=== PATIENT | female | born 1970 | race African-American/Black ===

== ENCOUNTER 2017-03-21 14:16 | Emergency (ER) | payer OTHER ==
[2017-03-21 14:26] VITALS: BP 140/86; PULSE 97; TEMP 98.5; BMI 58.7
--- NOTE | 2017-03-21 15:38 | PDOC ---
History of Present Illness - General Chief Complaint: Ear Problem Stated Complaint: EAR PAIN Time Seen by Provider: 03/21/17 15:04 History Source: Patient Exam Limitations: No Limitations - History of Present Illness Initial Comments: 03/21/17 15:31 47 yr female with pain to left ear for 4 days with drainage noted today. pt has no fever no chills. Past History - Past Medical History Allergies/Adverse Reactions: Allergies Allergy/AdvReac Type Severity Reaction Status Date / Time No Known Allergies Allergy Verified 03/21/17 14:25 Home Medications: Ambulatory Orders Metformin HCl [Glucophage] 1,000 mg PO BID 09/27/15 Neomycin/Polymyxin B Sulf/Hc [Kpyyfmxb-Txqzesowr-Ko Ear Soln] 5 drop QID #2 bottle 03/21/17 Diabetes: Yes (Borderline) - Suicide/Smoking/Psychosocial Hx Smoking History: Never smoked Information on smoking cessation initiated: No Hx Alcohol Use: No Drug/Substance Use Hx: No Substance Use Type: None Review of Systems - Review of Systems Able to Perform ROS?: Yes Is the patient limited [place] proficient: No Constitutional: No: Symptoms Reported HEENTM: Yes: Symptoms Reported, See HPI Respiratory: No: Symptoms reported Cardiac (ROS): No: Symptoms Reported ABD/GI: No: Symptoms Reported : No: Symptoms Reported Musculoskeletal: No: Symptoms Reported Integumentary: No: Symptoms Reported *Physical Exam - Vital Signs Last Vital Signs Temp Pulse Resp BP Pulse Ox 98.5 F 97 H 18 140/86 100 03/21/17 14:23 03/21/17 14:23 03/21/17 14:23 03/21/17 14:23 03/21/17 14:23 - Physical Exam General Appearance: Yes: Nourished, Appropriately Dressed, Obese HEENT: positive: EOMI, ELAYNE, TMs Normal, Pharynx Normal, TM Erythema (drainage left ear narrowing of canal) Neck: positive: Supple Respiratory/Chest: positive: Lungs Clear, Normal Breath Sounds Cardiovascular: positive: Regular Rhythm, Regular Rate Medical Decision Making - Medical Decision Making 03/21/17 15:33 cc: pain left ear with drainage for 4 days no fever no chills no swimming no air plain travel will treat for AOE *DC/Admit/Observation/Transfer Diagnosis at time of Disposition: Otitis externa of left ear Qualifiers: Otitis externa type: unspecified type Chronicity: acute Qualified Code(s): H60.502 - Unspecified acute noninfective otitis externa, left ear; H60.502 - Unspecified acute noninfective otitis externa, left ear - Discharge Dispostion Disposition: HOME Condition at time of disposition: Good - Prescriptions Prescriptions: Neomycin/Polymyxin B Sulf/Hc [Naougfcp-Bqrrwqhos-Nn Ear Soln] 5 drop QID #2 bottle - Referrals Referrals: Ambrosio Zaidi MD [Staff Physician] - - Patient Instructions Additional Instructions: use the ear drops as directed take motrin for pain as needed follow with the ear doctor next week if symptoms worsen or persist
== END 2017-03-21 15:44 | disposition home or self-care (01) ==
LOC: JERFT 14:16
DX: H60.502 Unspecified acute noninfective otitis externa, left ear (principal); R73.03 Prediabetes
CPT/HCPCS: 99281-25

== ENCOUNTER 2017-09-20 11:09 | Emergency (ER) | payer OTHER ==
[2017-09-20 12:06] VITALS: BP 117/68; PULSE 73; TEMP 98.1; BMI 43.8
--- NOTE | 2017-09-20 14:24 | PDOC ---
History of Present Illness - General Chief Complaint: Injury Stated Complaint: PAIN/ LT KNEE, RT WRIST Time Seen by Provider: 09/20/17 12:58 History Source: Patient Exam Limitations: No Limitations - History of Present Illness Initial Comments: 09/20/17 14:18 CHIEF COMPLAINT: Right wrist, thumb pain and left knee pain HISTORY OF PRESENT ILLNESS: Patient is a 47-year-old morbidly obese female reports 2 days ago twisted left knee still with residual pain lasts reports hitting the right hand against a wall. It shooting pain from base of right thumb upper arm, still with residual pain reproducible with movement. Pain is 10 out of 10 described as stiffening, sharp pain with movement. PMH: Denies, borderline diabetic and is taking metformin ALLERGIES: None REVIEW OF SYSTEMS: GENERAL/CONSTITUTIONAL: Awake alert and oriented HEAD, EYES, EARS, NOSE AND THROAT: No change in vision. No facial edema, no bruising. NO active bleeding. Nares intact. RESPIRATORY: No cough, wheezing, or hemoptysis. CARDIAC: Denies chest pain, no shortness of breathe. MUSCULOSKELETAL: No spinal point tenderness, Good ROM to all four extremities. Pain with range of motion to thumb and thenar. NO CVA tenderness. lateral neck pain. GI/: Denies abdominal pain, no nausea or vomiting, no bloody stool, no Hematuria. SKIN : No erythema or bruising noted. No abrasion or lacerations. NEUROLOGIC: No loss of consciousness, no numbness or tingling. PHYSICAL EXAM: GENERAL: Awake and alert and oriented x3. EYES: The pupils are equal, round, and reactive to light, with clear, conjunctiva. Good extraocular movement. No nystagmus NOSE: No nasal trauma . Midface stable MOUTH: Teeth intact. EARS: The ear canals and tympanic membranes are normal without trauma. No drainage. NECK: No Lower cervical C-spine tenderness, no pain with chin to chest. CHEST: The lungs are clear without crackles, or wheezes. No subcutaneous emphysema. No crepitus. HEART: Heart is regular rhythm, with normal S1 and S2, no murmurs. ABDOMEN: The abdomen is soft and nontender with normal bowel sounds. There is no guarding or rebound. MUSCULOSKELETAL: No spinal point tenderness. No bruising or erythema. Pelvis stable. Left knee with pain but good range of motion, no fluid appreciated, no bulge sign. No pain to superior or inferior patella. Negative drop test. Negative posterior leg test. No joint laxity noted, no ecchymosis, no deformity , no abrasions ,no edema. +3 popliteal pulse. Negative Homans sign. No calf pain or tenderness, no erythema or edema. No pain to snuffbox or thenar surface on palpation, only with range of motion to right hand. EXTREMITIES: Extremities are normal. No visible traumatic injury. NEUROLOGICAL:Mental status: The patient is oriented x3. No Generalized headache , Romberg - SKIN: Without edema, erythema or bruising. No abrasions or lacerations. Past History - Past Medical History Allergies/Adverse Reactions: Allergies Allergy/AdvReac Type Severity Reaction Status Date / Time No Known Allergies Allergy Verified 09/20/17 12:00 Home Medications: Ambulatory Orders Metformin HCl [Glucophage] 1,000 mg PO BID 09/27/15 Naproxen [Naprosyn -] 500 mg PO BID #20 tablet 09/20/17 Anemia: Yes COPD: No DVT: No Diabetes: Yes (Borderline) - Immunization History Immunization Up to Date: Yes - Suicide/Smoking/Psychosocial Hx Smoking History: Never smoked Have you smoked in the past 12 months: No Information on smoking cessation initiated: No Hx Alcohol Use: No Drug/Substance Use Hx: No Substance Use Type: None *Physical Exam - Vital Signs Last Vital Signs Temp Pulse Resp BP Pulse Ox 98.1 F 73 17 117/68 97 09/20/17 12:02 09/20/17 12:02 09/20/17 12:02 09/20/17 12:02 09/20/17 12:02 ED Treatment Course - RADIOLOGY Radiology Studies Ordered: Category Date Time Status KNEE 3 POS-LEFT [RAD] Stat Radiology 09/20/17 13:45 Taken WRIST W/HAND-RIGHT* [RAD] Stat Radiology 09/20/17 13:29 Taken Medical Decision Making - Medical Decision Making 09/20/17 14:24 A/P: She is a 47-year-old female, presents with right hand and left knee pain reports twisting her knee patient is morbidly obese. Have sent patient to x- ray of right hand and left knee, both negative for acute fracture dislocation or effusion. I have given patient Naprosyn while in emergency department I have explained to patient that weight a player rolling chronic knee pain and needs to follow-up with an orthopedist, hyperextension injury to right thumb may decrease with anti-inflammatories if pain persists in 1 week follow-up with ortho *DC/Admit/Observation/Transfer Diagnosis at time of Disposition: Hand pain, right Knee pain Qualifiers: Chronicity: acute Laterality: right Qualified Code(s): M25.561 - Pain in right knee - Discharge Dispostion Disposition: HOME Condition at time of disposition: Stable Admit: No - Prescriptions Prescriptions: Naproxen [Naprosyn -] 500 mg PO BID #20 tablet - Referrals Referrals: Chele Gore MD [Staff Physician] - - Patient Instructions Additional Instructions: Recommend follow-up with orthopedics as soon as possible . - Post Discharge Activity Forms/Work/School Notes: Back to Work
[2017-09-20] MEDS ORDERED: NAPROXEN 500 MG TABLET (FP) ONE (15:05)
[2017-09-20] MEDS ORDERED: NAPROXEN 500 MG TABLET (FP) PO ONE (15:06)
== END 2017-09-20 15:19 | disposition home or self-care (01) ==
LOC: JERFT 11:09
DX: M79.641 Pain in right hand (principal); M25.562 Pain in left knee; W22.8XXA Striking against or struck by other objects, initial encounter; Y93.89 Activity, other specified; Y92.89 Other specified places as the place of occurrence of the external cause; Y99.8 Other external cause status; E66.01 Morbid (severe) obesity due to excess calories; Z68.41 Body mass index [BMI] 40.0-44.9, adult
CPT/HCPCS: 73110-TC-RT-FY; 73130-TC-RT-FY; 73562-TC-LT-FY; 99281-25

== ENCOUNTER 2018-11-11 05:32 | Emergency (ER) | payer OTHER ==
[2018-11-11 06:22] VITALS: TEMP 98.2; BMI 101.7
--- NOTE | 2018-11-11 06:54 | PDOC ---
History of Present Illness - General Chief Complaint: Rash Stated Complaint: R FOOT RASH History Source: Patient Exam Limitations: No Limitations - History of Present Illness Initial Comments: 11/11/18 06:47 Patient is a 48-year-old female prediabetic, morbidly obese, complaining of right leg swelling, pain and a rash 1.5 weeks. Patient states that she had itching to the right lower leg and scratched an area over the sanon about a week and a half ago. States she noticed a rash, which swelling which has progressively worsened. Now she has a throbbing pain to her lower extremity is 7 /10. She denies fever, chills. No recent travel, family history negative for PE /DVT PMD: Dr. Hector Mcdonnell PMHX: as above PSOCHX: neg etoh, drug, cig ALL: NKDA GENERAL/CONSTITUTIONAL: No fever or chills. No weakness. No weight change. HEAD, EYES, EARS, NOSE AND THROAT: No change in vision. No ear pain or discharge. No sore throat. CARDIOVASCULAR: No chest pain or shortness of breath. RESPIRATORY: No cough, wheezing, or hemoptysis. GASTROINTESTINAL: No nausea, vomiting, diarrhea or constipation. No rectal bleeding. GENITOURINARY: No dysuria, frequency, or change in urination. MUSCULOSKELETAL: No joint or muscle swelling or pain. No neck or back pain. SKIN AND BREASTS: (+) rash (-) easy bruising. NEUROLOGIC: No headache, vertigo, loss of consciousness, or loss of sensation. PSYCHIATRIC: No depression or anxiety. ENDOCRINE: No increased thirst. No abnormal weight change. HEMATOLOGIC/LYMPHATIC: No anemia, easy bleeding, or history of blood clots. ALLERGIC/IMMUNOLOGIC: No hives or skin allergy. No latex allergy. GENERAL: The patient is awake, alert, and fully oriented, in mild distress. HEAD: Normal with no signs of trauma. EYES: Pupils equal, round and reactive to light, extraocular movements intact, sclera anicteric, conjunctiva clear. ENT: Ears normal, nares patent, oropharynx clear without exudates. Moist mucous membranes. NECK: Normal range of motion, supple without lymphadenopathy, JVD, or masses. LUNGS: Breath sounds equal, clear to auscultation bilaterally. No wheezes, and no crackles. HEART: Regular rate and rhythm, normal S1 and S2 without murmur, rub. ABDOMEN: Soft, obese, nontender, normoactive bowel sounds. No guarding, no rebound. No masses. EXTREMITIES: Normal range of motion, no edema. No clubbing or cyanosis. No cords, erythema, or tenderness. NEUROLOGICAL: Cranial nerves II through XII grossly intact. Normal speech, normal gait. PSYCH: Normal mood, normal affect. SKIN: Warmth, (+) swelling, tenderness to the right lower ext - sanon, with scabby, dry rash, erythematous, 1+ pitting edema to the foot Past History - Past Medical History Allergies/Adverse Reactions: Allergies Allergy/AdvReac Type Severity Reaction Status Date / Time No Known Allergies Allergy Verified 11/11/18 06:22 Home Medications: Ambulatory Orders Metformin HCl [Glucophage] 1,000 mg PO BID 09/27/15 Naproxen [Naprosyn -] 500 mg PO BID #20 tablet 09/20/17 Anemia: Yes COPD: No DVT: No Diabetes: Yes (Borderline) - Immunization History Immunization Up to Date: Yes - Suicide/Smoking/Psychosocial Hx Smoking History: Never smoked Have you smoked in the past 12 months: No Information on smoking cessation initiated: No Hx Alcohol Use: No Drug/Substance Use Hx: No Substance Use Type: None *Physical Exam - Vital Signs Last Vital Signs Temp Pulse Resp BP Pulse Ox 98.2 F 85 18 126/70 97 11/11/18 05:32 11/11/18 05:32 11/11/18 05:32 11/11/18 05:32 11/11/18 05:32 ED Treatment Course - RADIOLOGY Radiology Studies Ordered: Category Date Time Status DUPLEX VASCUL US-1 LEG [US] Stat Ultrasound 11/11/18 06:46 Ordered Medical Decision Making - Medical Decision Making 11/11/18 06:47 Patient is a 48-year-old female prediabetic, morbidly obese, complaining of right leg swelling, pain and a rash 1.5 weeks. Patient states that she had itching to the right lower leg and scratched an area over the sanon about a week and a half ago. States she noticed a rash, which swelling which has progressively worsened. Now she has a throbbing pain to her lower extremity is 7 /10. She denies fever, chills. No recent travel, family history negative for PE /DVT. Symptoms consistent with cellulitis of the leg labs, incl cult antibx US doppler right lower ext Endorsed to day team pending work up *DC/Admit/Observation/Transfer Diagnosis at time of Disposition: Cellulitis of leg without foot, right - Discharge Dispostion Condition at time of disposition: Fair - Referrals - Patient Instructions - Post Discharge Activity
[2018-11-11 08:12] VITALS: BP 137/74; PULSE 72
--- NOTE | 2018-11-11 08:21 | PDOC ---
*Physical Exam - Vital Signs Last Vital Signs Temp Pulse Resp BP Pulse Ox 98.2 F 72 18 137/74 100 11/11/18 05:32 11/11/18 08:00 11/11/18 08:00 11/11/18 08:00 11/11/18 08:00 - Physical Exam General Appearance: Yes: Appropriately Dressed. No: Apparent Distress HEENT: positive: Normal Voice Neck: positive: Supple Respiratory/Chest: positive: Lungs Clear, Normal Breath Sounds. negative: Respiratory Distress Cardiovascular: positive: Regular Rate, S1, S2 Extremity: positive: Other (diffuse edema of RLE w/ hyperpigmented, moist plaques to R ankle/lower leg circumferentially of unclear etiology, minimal erythema and warmth to site, unable to palpate pulses, LLE uninvolved) Integumentary: positive: Dry, Warm Neurologic: positive: Fully Oriented, Alert, Normal Mood/Affect ED Treatment Course - LABORATORY CBC & Chemistry Diagram: 11/11/18 07:55 11/11/18 07:55 Medical Decision Making - Medical Decision Making 11/11/18 08:19 Pt signed out to me at 7am 48 yo morbidly obesed, NIDDM, here w/ RLE pain/swelling. Patient states one week ago noticed pruritic rash to right leg for the first time and developed pain and swelling to site yesterday. No fever or chills. No history of similar episode. Denies chest pain, shortness of breath or palpitations. No obvious risk factor for DVT, PE. Labs and US pending 11/11/18 08:50 On exam now, pt has diffuse edema to RLE w/ hyperpigmented, moist plaques circumferentially to R ankle/lower leg w/ minimal erythema and warmth, no sig ttp, unable to palpate pulses 2/2 swelling. Labs and US still pending at this time. Will give dose of IV abx and discuss dispo w/ ED attg 11/11/18 09:52 UA neg for DVT. Labs unremarkable. Patient also evaluated by Dr. Ortiz who recommends discharging with antibiotics and have patient return in 2 days for reassessment. Pt also given vascular referral *DC/Admit/Observation/Transfer Diagnosis at time of Disposition: Cellulitis of leg without foot, right - Discharge Dispostion Disposition: HOME Condition at time of disposition: Stable - Prescriptions Prescriptions: Clindamycin [Cleocin -] 300 mg PO Q6HPO #28 capsule Clindamycin [Cleocin -] 300 mg PO Q6HPO #28 capsule - Referrals Referrals: Holden Brock MD [Non Staff, Medical] - - Patient Instructions Printed Discharge Instructions: Cellulitis Additional Instructions: You are being treated for an infection of your right leg. Please take the clindamycin as directed. We want you to return to the ER in 2 days for reassessment. Please return sooner if symptoms worsen as discussed today - Post Discharge Activity
[2018-11-11] MEDS ORDERED: CLINDAMYCIN 600MG PREMIX IVPB 600 MG/50 ML BAG IVPB ONE ×2 (08:22→08:57)
[2018-11-11 08:30] LABS: ALBUMIN 3.3 g/dl (3.4-5.0); BILIRUBIN,TOTAL 0.3 mg/dL (0.2-1); BLOOD UREA NITROGEN 12.2 mg/dL (7-18); CALCIUM 8.9 mg/dL (8.5-10.1); CREATININE 0.6 mg/dL (0.55-1.3); POTASSIUM 4.7 mmol/L (3.5-5.1); TOT PROT 7.1 g/dl (6.4-8.2)
[2018-11-11 09:20] LABS: BASO % 0.6 % (0-2.0); EOS % 3.6 % (0-4.5); HEMATOCRIT 30.9 % (32.4-45.2); HEMOGLOBIN 9.7 GM/dL (10.7-15.3); LYMPH % 37.6 % (8-40); MCH 25.4 pg (25.7-33.7); MCHC 31.4 g/dl (32.0-36.0); MONO % 7.5 % (3.8-10.2); NEUT % 50.7 % (42.8-82.8); RBC 3.82 M/mm3 (3.60-5.2); RDW 23.2 % (11.6-15.6); WHITE BLOOD COUNT 10.1 K/mm3 (4.0-10.0)
[2018-11-11 09:53] LABS: PLATELET COUNT 224 K/MM3 (134-434)
[2018-11-11 11:26] LABS: ANISOCYTOSIS 1+; MACROCYTOSIS 0; PLATELET ESTIMATE NORMAL
== END 2018-11-11 10:05 | disposition home or self-care (01) ==
LOC: JER 05:32
DX: L03.115 Cellulitis of right lower limb (principal); R73.03 Prediabetes; E66.01 Morbid (severe) obesity due to excess calories; Z68.45 Body mass index [BMI] 70 or greater, adult
CPT/HCPCS: 36415; 80053; 85025; 85651; 86140; 87040; 93971-TC; 96365; 99283-25

== ENCOUNTER 2018-11-25 13:48 | Emergency (ER) | payer OTHER ==
[2018-11-25 13:54] VITALS: BP 150/69; PULSE 87; TEMP 97.9; BMI 55.3
[2018-11-25] MEDS ORDERED: DEXAMETHASONE SOD PHOSPHATE 10 MG/1 ML VIAL IM ONE (14:05)
[2018-11-25] MEDS ORDERED: DEXAMETHASONE SOD PHOSPHATE 10 MG/1 ML VIAL ONE (14:08)
--- NOTE | 2018-11-25 14:12 | PDOC ---
History of Present Illness - General Chief Complaint: Rash Stated Complaint: ALLERGY Time Seen by Provider: 11/25/18 13:58 History Source: Patient Exam Limitations: Clinical Condition - History of Present Illness Initial Comments: 11/25/18 14:44 Patient with no significant past medical history present with complaint of diffuse hives after finishing clindamycin antibiotics for right leg cellulitis area and patient was seen a week ago with cellulitis to right lower leg and was treated it clindamycin antibiotics and reports started breaking out with hives after starting antibiotics but has finished antibiotics and rash still persists and has been worsening past 3 days. Denies shortness of breath, tongue swelling , difficulty breathing. Patient was referred to follow up wound care clinic but hasn't followed up yet. Past History - Past Medical History Allergies/Adverse Reactions: Allergies Allergy/AdvReac Type Severity Reaction Status Date / Time clindamycin Allergy Verified 11/25/18 14:33 Home Medications: Ambulatory Orders Metformin HCl [Glucophage] 1,000 mg PO BID 09/27/15 Naproxen [Naprosyn -] 500 mg PO BID #20 tablet 09/20/17 Famotidine [Pepcid] 20 mg PO BID 5 Days #10 tablet 11/25/18 Silver Sulfadiazine 1% Top Cr [Silvadene -] 1 applic TP BID #1 jar 11/25/18 predniSONE [Deltasone -] 20 mg PO DAILY 5 Days #10 tablet 11/25/18 Anemia: Yes COPD: No DVT: No Diabetes: Yes (Borderline) - Immunization History Immunization Up to Date: Yes - Suicide/Smoking/Psychosocial Hx Smoking History: Never smoked Have you smoked in the past 12 months: No Hx Alcohol Use: No Drug/Substance Use Hx: No Substance Use Type: None Review of Systems - Review of Systems Able to Perform ROS?: Yes Is the patient limited [place] proficient: No Constitutional: No: Fever, Malaise HEENTM: No: Symptoms Reported Respiratory: No: Symptoms reported Cardiac (ROS): No: Symptoms Reported ABD/GI: No: Symptoms Reported Musculoskeletal: No: Symptoms Reported Integumentary: Yes: Symptoms Reported, See HPI, Change in Color (right lower leg ), Erythema (right lower leg), Rash (all over) Neurological: No: Numbness, Paresthesia, Tingling All Other Systems: Reviewed and Negative *Physical Exam - Vital Signs Last Vital Signs Temp Pulse Resp BP Pulse Ox 97.9 F 87 18 150/69 99 11/25/18 13:51 11/25/18 13:51 11/25/18 13:51 11/25/18 13:51 11/25/18 13:51 - Physical Exam Comments: 11/25/18 14:48 GENERAL: Well developed, well nourished. Awake and alert. No acute distress. HEENT: Normocephalic, atraumatic. PERRLA, EOMI. No conjunctival pallor. Sclera are non-icteric. Moist mucous membranes. Oropharynx is clear. NECK: Supple. Full ROM. CARDIOVASCULAR: Regular rate and rhythm. No murmurs, rubs, or gallops. Distal pulses are 2+ and symmetric. PULMONARY: No evidence of respiratory distress. MUSCULOSKELETAL Normal range of motion at all joints. EXTREMITIES: moderate edema to right lower leg and foot. No calf tenderness. SKIN: Warm and dry. Normal capillary refill. mild diffused erythema of right lower leg above right ankle with aschcar to skin and small area of blisters to cellulitis of lateral aspect of right leg above right ankle NEUROLOGICAL: Alert, awake, appropriate. Gait is normal without ataxia. PSYCHIATRIC: Cooperative. Good eye contact. Appropriate mood General Appearance: Yes: Nourished, Appropriately Dressed. No: Apparent Distress Medical Decision Making - Medical Decision Making 11/25/18 14:46 Patient with no significant past medical history present with complaint of diffuse hives after finishing clindamycin antibiotics for right leg cellulitis area and patient was seen a week ago with cellulitis to right lower leg and was treated it clindamycin antibiotics and reports started breaking out with hives after starting antibiotics but has finished antibiotics and rash still persists and has been worsening past 3 days. Denies shortness of breath, tongue swelling , difficulty breathing. Patient was referred to follow up wound care clinic but hasn't followed up yet. Exam significant for diffuse urticarial rash globally with right lower distal leg skin erythema with Ashcar. Oropharynx patent. Decadron 10 mg IM given for ALLERGIC reaction. Patient be discharged home on by mouth Pepcid and prednisone for ALLERGIC dermatitis. Patient also prescribed Silvadene cream to help with blisters to right lower leg from cellulitis with wound follow-up. Patient advised to call wound care tomorrow for follow-up and stressed importance of wound care follow-up. Patient stable for discharge *DC/Admit/Observation/Transfer Diagnosis at time of Disposition: Cellulitis of leg without foot, right, Allergic dermatitis - Discharge Dispostion Disposition: HOME Condition at time of disposition: Stable Decision to Admit order: No - Prescriptions Prescriptions: Famotidine [Pepcid] 20 mg PO BID 5 Days #10 tablet predniSONE [Deltasone -] 20 mg PO DAILY 5 Days #10 tablet Silver Sulfadiazine 1% Top Cr [Silvadene -] 1 applic TP BID #1 jar - Referrals Referrals: Holden Brock DO [Staff Physician] - Call tomorrow - Patient Instructions Printed Discharge Instructions: DI for Cellulitis -- Adult Additional Instructions: Take medications as prescribed. Follow-up with wound care as discussed. Call tomorrow for follow-up appointment - Post Discharge Activity
== END 2018-11-25 14:20 | disposition home or self-care (01) ==
LOC: JERFT 13:48
PROC: 3E0233Z Introduction of Anti-inflammatory into Muscle, Percutaneous Approach (ICD-10-PCS; principal; 2018-11-25)
DX: L23.9 Allergic contact dermatitis, unspecified cause (principal); L03.115 Cellulitis of right lower limb; E11.9 Type 2 diabetes mellitus without complications; Z79.84 Long term (current) use of oral hypoglycemic drugs; Z86.2 Personal history of diseases of the blood and blood-forming organs and certain disorders involving the immune mechanism
CPT/HCPCS: 96372; 99281-25; J1100

== ENCOUNTER 2024-04-28 12:48 | Emergency (ER) | payer OTHER ==
[2024-04-28 13:05] VITALS: BP 112/76; PULSE 96; RESP 19; TEMP 98.7; BMI 50.1
[2024-04-28] MEDS ORDERED: ACETAMINOPHEN 500 MG TABLET (FP) ONE (14:24)
[2024-04-28] MEDS: ACETAMINOPHEN 500 MG TABLET (FP) PO ONE (14:26)
[2024-04-28 16:24] LABS: HIV INTERPRETATION NEGATIVE (NEGATIVE)
== END 2024-04-28 14:37 | disposition home or self-care (01) ==
LOC: JERFT 12:48
DX: L03.116 Cellulitis of left lower limb (principal); M79.662 Pain in left lower leg
CPT/HCPCS: 36415; 86803; 87389; 99283-25

== ENCOUNTER 2024-08-29 18:51 | Inpatient (IN) | payer OTHER ==
[2024-08-29 19:02] VITALS: BMI 58.7
[2024-08-29] MEDS ORDERED: ALBUTEROL SO4 2.5/IPRATROPIUM 0.5 INH SOL 3 ML VIAL.NEB. NEB ONE (19:41)
[2024-08-29] MEDS: ALBUTEROL SO4 2.5/IPRATROPIUM 0.5 INH SOL 3 ML VIAL.NEB. NEB ONE (20:12)
[2024-08-29 20:27] LABS: VENOUS BASE EXCESS 5.7 mmol/L (-2-2); VENOUS O2 SATURATION 76.3 % (70-80); VENOUS PCO2 64.5 mmHg (38-52); VENOUS PH 7.334 (7.310-7.410)
[2024-08-29 20:27] LABS: ABSOLUTE IMMATURE GRANULOCYTES 0.03 x10^3/uL (0.0-0.031); BASOPHILS # 0.03 x10^3/uL (0.01-0.08); EOSINOPHIL % 3.8 % (0.7-5.8); EOSINOPHILS # 0.28 x10^3/uL (0.04-0.36); HEMATOCRIT 41.3 % (34.1-44.9); HEMOGLOBIN 11.9 g/dL (11.2-15.7); MCHC 28.8 g/dl (32.2-35.5); MEAN CELL VOLUME 84.6 fl (79.4-94.8); MEAN PLT VOLUME 10.9 fl (9.4-12.3); MONOCYTE # 0.65 x10^3/uL (0.24-0.86); MONOCYTE % 8.8 % (4.7-12.5); PLATELET COUNT 192 x10^3/uL (182-369); RDW 17.6 % (12.3-16.6)
[2024-08-29] MEDS ORDERED: ACETAMINOPHEN INJECTION 100 ML ONE (20:27)
[2024-08-29 20:35] LABS: INR 1.07 (0.83-1.09); PROTHROMBIN TIME (PATIENT) 11.8 SEC (9.7-13.0)
[2024-08-29 20:37] LABS: ACTIVATED PTT 28.5 SECONDS (25.2-36.5)
[2024-08-29 20:52] LABS: POTASSIUM 3.8 mmol/L (3.5-5.1)
[2024-08-29 20:54] LABS: CALCIUM 8.8 mg/dL (8.5-10.1)
[2024-08-29 20:55] LABS: ALBUMIN 3.2 g/dl (3.4-5.0); BLOOD UREA NITROGEN 11.3 mg/dL (7-18)
[2024-08-29 20:58] LABS: CREATININE 0.6 mg/dL (0.55-1.3)
[2024-08-29 20:59] LABS: BILIRUBIN,TOTAL 0.3 mg/dL (0.2-1); TOT PROT 7.4 g/dl (6.4-8.2)
[2024-08-29] MEDS: LACTATED RINGERS SOLUTION 1000 ML INFUS.BAG IV ONE (21:09)
[2024-08-29] MEDS: ACETAMINOPHEN 1000 MG/100 ML BAG IVPB ONE (21:09)
[2024-08-29] MEDS ORDERED: AZITHROMYCIN IVPB 500 MG/250 ML BAG IVPB ONE (23:37)
[2024-08-29] MEDS ORDERED: CEFTRIAXONE 1 G/50 ML PREMIX 50 ML IVPB ONE (23:37)
[2024-08-30] MEDS: AZITHROMYCIN IVPB 500 MG in DEXTROSE 5%-WATER - 250 ML IVPB ONE (00:48)
[2024-08-30] MEDS ORDERED: ALBUTEROL SO4 2.5/IPRATROPIUM 0.5 INH SOL 3 ML VIAL.NEB. NEB PRN (01:08)
[2024-08-30 01:11] LABS: URINE APPEARANCE CLEAR; URINE COLOR YELLOW; URINE GLUCOSE (UA) NEGATIVE (NEGATIVE)
[2024-08-30 01:12] LABS: PH,URINE 6.5 (5.0-8.0); URINE BILIRUBIN NEGATIVE (NEGATIVE); URINE KETONE NEGATIVE (NEGATIVE); URINE LEUK ESTERASE NEGATIVE (NEGATIVE); URINE NITRITE NEGATIVE (NEGATIVE); URINE PROTEIN 30 (NEGATIVE)
[2024-08-30 01:13] LABS: EPI CELLS 5.6 /uL (0-25.1); HYALINE CASTS 0.13 /uL (0-3.1); URINE RBC 310.9 /uL (0-23.9); URINE WBC 5.4 /uL (0-25.8)
[2024-08-30 01:14] LABS: URINE BACTERIA 31.1 /uL (0-1359)
[2024-08-30] MEDS: guaiFENesin 600 MG TABLET.ER (FP) PO SCH (01:15)
[2024-08-30] MEDS ORDERED: DEXAMETHASONE SOD PHOSPHATE 10 MG/1 ML VIAL ONE (01:27)
[2024-08-30] MEDS: DEXAMETHASONE SOD PHOSPHATE 10 MG/1 ML VIAL IVPUSH SCH (01:48)
[2024-08-30] MEDS: SODIUM CHLORIDE 1,000 ML IV STA (02:08)
[2024-08-30] MEDS: REMDESIVIR 200 MG in SODIUM CHLORIDE 250 ML IVPB ONE ×2 (02:57→16:16)
[2024-08-30] MEDS: INSULIN ASPART SLIDING SCALE (NOVOLOG) 1 VIAL SQ SCH ×2 (07:09→11:50)
[2024-08-30 07:55] LABS: ABSOLUTE IMMATURE GRANULOCYTES 0.04 x10^3/uL (0.0-0.031); BASOPHILS # 0.02 x10^3/uL (0.01-0.08); EOSINOPHIL % 0.3 % (0.7-5.8); EOSINOPHILS # 0.02 x10^3/uL (0.04-0.36); HEMATOCRIT 39.1 % (34.1-44.9); HEMOGLOBIN 11.4 g/dL (11.2-15.7); MCHC 29.2 g/dl (32.2-35.5); MEAN CELL VOLUME 83.9 fl (79.4-94.8); MEAN PLT VOLUME 11.7 fl (9.4-12.3); MONOCYTE # 0.33 x10^3/uL (0.24-0.86); MONOCYTE % 4.5 % (4.7-12.5); PLATELET COUNT 201 x10^3/uL (182-369); RDW 17.6 % (12.3-16.6)
[2024-08-30 08:09] LABS: POTASSIUM 4.1 mmol/L (3.5-5.1)
[2024-08-30 08:19] LABS: CALCIUM 8.7 mg/dL (8.5-10.1)
[2024-08-30 08:20] LABS: ALBUMIN 3.1 g/dl (3.4-5.0); BLOOD UREA NITROGEN 9.1 mg/dL (7-18); MAGNESIUM 2.2 mg/dL (1.8-2.4)
[2024-08-30 08:23] LABS: CREATININE 0.6 mg/dL (0.55-1.3); PHOSPHOROUS 3.3 mg/dL (2.5-4.9)
[2024-08-30 08:24] LABS: BILIRUBIN,TOTAL 0.3 mg/dL (0.2-1)
[2024-08-30] MEDS: ENOXAPARIN NA (PORCINE) 40 MG/0.4 ML DISP.SYRIN SQ SCH (09:58)
[2024-08-30] MEDS: ACETAMINOPHEN 1000 MG/100 ML BAG IVPB PRN (09:58)
[2024-08-30] MEDS: LOSARTAN POTASSIUM 25 MG TABLET PO SCH (09:58)
[2024-08-30] MEDS: guaiFENesin/D-METHORPHAN TAB.ER.12H PO SCH (11:44)
[2024-08-30] MEDS: SODIUM CHLORIDE 1,000 ML IV SCH (11:45)
[2024-08-30] MEDS: ALBUTEROL SO4 2.5/IPRATROPIUM 0.5 INH SOL 3 ML VIAL.NEB. NEB SCH (13:30)
[2024-08-30] MEDS: CEFTRIAXONE 1 G/50 ML PREMIX 50 ML IVPB SCH (15:19)
[2024-08-30] MEDS: AZITHROMYCIN IVPB 500 MG/250 ML BAG IVPB SCH (16:35)
[2024-08-30] MEDS: REMDESIVIR 100 MG in SODIUM CHLORIDE 250 ML IVPB SCH (18:27)
[2024-08-30] MEDS: ATORVASTATIN CA 20 MG TABLET (FP) PO SCH (22:39)
[2024-08-30] MEDS: MELATONIN 5 MG TABLETS PO ONE (22:45)
[2024-08-30] MEDS: BUDESONIDE/FORMETEROL FUMARATE 160/4.5 mcg INHALER IH SCH (22:46)
[2024-08-31 07:15] LABS: ABSOLUTE IMMATURE GRANULOCYTES 0.02 x10^3/uL (0.0-0.031); BASOPHILS # 0.02 x10^3/uL (0.01-0.08); EOSINOPHIL % 0.1 % (0.7-5.8); EOSINOPHILS # 0.01 x10^3/uL (0.04-0.36); HEMATOCRIT 39.6 % (34.1-44.9); HEMOGLOBIN 11.2 g/dL (11.2-15.7); MCHC 28.3 g/dl (32.2-35.5); MEAN CELL VOLUME 85.7 fl (79.4-94.8); MEAN PLT VOLUME 11.3 fl (9.4-12.3); MONOCYTE # 0.45 x10^3/uL (0.24-0.86); MONOCYTE % 6.7 % (4.7-12.5); PLATELET COUNT 205 x10^3/uL (182-369); RDW 18.1 % (12.3-16.6)
[2024-08-31 07:37] LABS: POTASSIUM 4.6 mmol/L (3.5-5.1)
[2024-08-31 08:29] LABS: CALCIUM 8.9 mg/dL (8.5-10.1)
[2024-08-31 08:30] LABS: BLOOD UREA NITROGEN 12.6 mg/dL (7-18); MAGNESIUM 2.2 mg/dL (1.8-2.4)
[2024-08-31 08:31] LABS: BILIRUBIN,TOTAL 0.3 mg/dL (0.2-1); PHOSPHOROUS 4.3 mg/dL (2.5-4.9)
[2024-08-31 08:33] LABS: CREATININE 0.6 mg/dL (0.55-1.3)
[2024-08-31 08:36] LABS: TOT PROT 6.9 g/dl (6.4-8.2)
[2024-08-31] MEDS ORDERED: REMDESIVIR 100 MG in SODIUM CHLORIDE 250 ML IVPB SCH (10:00)
[2024-08-31] MEDS: BENZONATATE 200 MG CAPSULE PO PRN (18:18)
[2024-09-01 09:30] LABS: ABSOLUTE IMMATURE GRANULOCYTES 0.03 x10^3/uL (0.0-0.031); BASOPHILS # 0.03 x10^3/uL (0.01-0.08); EOSINOPHIL % 0.1 % (0.7-5.8); EOSINOPHILS # 0.01 x10^3/uL (0.04-0.36); HEMATOCRIT 38.7 % (34.1-44.9); HEMOGLOBIN 11.4 g/dL (11.2-15.7); MCHC 29.5 g/dl (32.2-35.5); MEAN CELL VOLUME 83.6 fl (79.4-94.8); MEAN PLT VOLUME 12.5 fl (9.4-12.3); MONOCYTE # 0.62 x10^3/uL (0.24-0.86); MONOCYTE % 6.7 % (4.7-12.5); PLATELET COUNT 229 x10^3/uL (182-369); RDW 17.6 % (12.3-16.6)
[2024-09-01 09:48] LABS: POTASSIUM 3.8 mmol/L (3.5-5.1)
[2024-09-01 09:55] LABS: CALCIUM 8.7 mg/dL (8.5-10.1)
[2024-09-01 09:56] LABS: BLOOD UREA NITROGEN 11.8 mg/dL (7-18)
[2024-09-01 09:59] LABS: CREATININE 0.5 mg/dL (0.55-1.3)
[2024-09-01 10:39] VITALS: RESP 17
[2024-09-01 14:02] VITALS: BP 139/72; PULSE 81; TEMP 97.9
== END 2024-09-01 19:56 | disposition home or self-care (01) | DRG 137 ==
LOC: JER 18:51 → JERBED 23:37 → OBSVTOIN 08-30 00:11 → J4S 08-30 02:31
PROVIDERS: ADMIT Hospitalist; ATTEND Internal Medicine
PROC: XW033E5 Introduction of Remdesivir Anti-infective into Peripheral Vein, Percutaneous Approach, New Technology Group 5 (ICD-10-PCS; principal; 2024-08-30)
DX: U07.1 COVID-19 (principal); J18.9 Pneumonia, unspecified organism; M62.82 Rhabdomyolysis; Z68.43 Body mass index [BMI] 50.0-59.9, adult; E66.01 Morbid (severe) obesity due to excess calories; E11.9 Type 2 diabetes mellitus without complications; E78.5 Hyperlipidemia, unspecified; J45.909 Unspecified asthma, uncomplicated; R09.02 Hypoxemia
CPT/HCPCS: 0241U-QW; 36415; 71045-TC-FY; 71275-TC; 80048; 80053; 81003; 82550; 82553; 82803; 82962; 83605; 83735; 84100; 84484; 85025; 85610; 85730; 86140; 86850; 86900; 86901; 87040; 87086; 87899; 93005; 93010; 94640; 97116-GP; 97161-GP; 99285-25; G0378; J0131; J0248; J1100; Q9967